=== PATIENT | female | born 1960 | race African-American/Black ===

== ENCOUNTER 2017-12-17 22:44 | Inpatient (IN) ==
[2017-12-17 23:34] LABS: Baso % (Auto) 0.4 % (0.0-2.0); Eos % (Auto) 0.9 % (0.0-4.0); Hematocrit 33.9 % (35.0-46.0); Hemoglobin 11.1 gm/dL (11.6-15.3); Lymph # (Auto) 1.7 th/mm3 (1.0-4.8); Lymph % (Auto) 34.8 % (9.0-44.0); Mean Corpuscular HGB Conc 32.9 % (32.0-36.0); Mean Corpuscular Hemoglobin 31.1 pg (27.0-34.0); Mean Corpuscular Volume 94.7 fL (80.0-100.0); Mean Platelet Volume 8.2 fL (7.0-11.0); Mono # (Auto) 0.4 th/mm3 (0.0-0.9); Mono % (Auto) 8.3 % (0.0-8.0); Neut # (Auto) 2.7 th/mm3 (1.8-7.7); Neut % (Auto) 55.6 % (16.0-70.0); Platelet Count 200 th/mm3 (150-450); Red Blood Count 3.58 mil/mm3 (4.00-5.30); Red Cell Distribution Width 14.2 % (11.6-17.2); White Blood Count 4.8 th/mm3 (4.0-11.0)
[2017-12-17 23:52] LABS: Alanine Aminotransferase 44 U/L (10-53); Albumin 3.6 g/dL (3.4-5.0); Alkaline Phosphatase 69 U/L (45-117); Anion Gap 11 meq/L (5-15); Aspartate Aminotransferase 66 U/L (15-37); Blood Urea Nitrogen 10 mg/dL (7-18); Calcium 8.8 mg/dL (8.5-10.1); Carbon Dioxide 25.5 meq/L (21.0-32.0); Chloride 110 meq/L (98-107); Creatine Kinase 411 U/L (26-192); Glomerular Filtration Rate 88 mL/min (>89); Glucose,Random 96 mg/dL (74-106); Sodium 146 meq/L (136-145); Total Protein 7.6 g/dL (6.4-8.2)
[2017-12-17 23:53] LABS: Potassium 2.5 meq/L (3.5-5.1)
[2017-12-18 00:15] LABS: CKMB Percent 1.9 % (0.0-4.0); Creatine Kinase MB 7.9 ng/mL (0.5-3.6)
[2017-12-18 00:58] LABS: Sodium 145 meq/L (136-145)
[2017-12-18 00:59] LABS: Anion Gap 10 meq/L (5-15); Blood Urea Nitrogen 9 mg/dL (7-18); Calcium 8.7 mg/dL (8.5-10.1); Carbon Dioxide 25.8 meq/L (21.0-32.0); Chloride 109 meq/L (98-107); Glomerular Filtration Rate Greater Than 89 mL/min (>89); Glucose,Random 85 mg/dL (74-106)
[2017-12-18 01:03] LABS: Potassium 2.7 meq/L (3.5-5.1)
--- NOTE | 2017-12-18 01:14 | ED ---
HPI General Chief Complaint: Psychiatric Symptoms Stated Complaint: Psych Eval/VCSO Time Seen by Provider: 12/17/17 23:02 Source: EMS Mode of arrival: EMS Limitations: altered mental status History of Present Illness HPI Narrative: The patient was brought in by EMS with police escort as a main act chemically sedated with 10 mg of Haldol and 2 of Ativan at [facility] for acute psychosis. As per Main act the patient was walking in the middle of the road and dealt on a fire approach her she started being aggressive and not responding to questions appropriately. She was unable to identify herself and was subsequently taken to the [facility] facility where she was chemically sedated and sent to the hospital for further evaluation and psychiatric consult. MD complaint: altered mental status Related Data Home Medications Medication Instructions Recorded Confirmed Unable to Obtain Home Meds 12/17/17 12/17/17 Allergies Allergy/AdvReac Type Severity Reaction Status Date / Time No Allergy Information Allergy Verified 12/17/17 23:14 Available Review of Systems ROS Unobtainable ROS Unobtainable: unobtainable due to mental status FOR[facility]LY [facility], [facility] Medical History Medical History Medical history unknown (Acute) Surgical history unknown (Acute) Social History Social History Substance History: Unable to Obtain Smoking Status: Cognitive impairment How Often Do You Have a Drink Containing Alcohol: Unable to Obtain Recent Out of Country Travel within the Last 8 Weeks: No Immunization History Tetanus Immunization: Unable to Assess Hx Influenza Vaccine This Season: Unable to Assess Exam Narrative Exam Narrative: GENERAL: Chemically sedated not responding to questions grimaces to painful stimuli SKIN: Focused skin assessment warm/dry. Facial excoriations old healing and vitiligo. HEAD: Atraumatic. Normocephalic. EYES: Pupils equal and round. No scleral icterus. No injection or drainage. ENT: No nasal bleeding or discharge. Mucous membranes pink and moist. NECK: Trachea midline. No JVD. CARDIOVASCULAR: Regular rate and rhythm. No murmur appreciated. RESPIRATORY: No accessory muscle use. Clear to auscultation. Breath sounds equal bilaterally. GASTROINTESTINAL: Abdomen soft, non-tender, nondistended. Hepatic and splenic margins not palpable. MUSCULOSKELETAL: No obvious deformities. No clubbing. No cyanosis. No edema. NEUROLOGICAL: Awake and alert. No obvious cranial nerve deficits. Motor grossly within normal limits. Normal speech. PSYCHIATRIC: Appropriate mood and affect; insight and judgment normal. Course Hospital Course: Patient arrived chemically sedated in no distress not agitated. She was evaluated for medical clearance. Patient with a hypokalemia of 2.5 confirmed by repeat not 2.7 initiated replacement in the emergency department her magnesium was within normal limits. Renal function intact. Was admitted for further evaluation and psychiatric consultation. Reevaluation(s) Reevaluation #1: Patient Time: 01:00 Initial Documented Vital Signs Temperature 97.9 F 12/17/17 22:58 Pulse Rate 82 12/17/17 22:58 Respiratory Rate 22 12/17/17 22:58 Blood Pressure 118/68 12/17/17 22:58 Pulse Oximetry 97 12/17/17 22:58 Last Documented Vital Signs Temperature 98.6 F 12/18/17 16:00 Pulse Rate 90 12/18/17 16:00 Respiratory Rate 16 12/18/17 16:00 Blood Pressure 129/81 12/18/17 16:00 Pulse Oximetry 98 12/18/17 16:00 Critical Care Time Critical Care Time: No Medical Decision Making MDM Narrative Medical Screen Exam Complete: Yes Emergency Medical Condition: Yes Lab Data Lab results reviewed: Yes I reviewed the patient's lab results. Result diagrams: 12/17/17 23:22 12/18/17 16:01 Lab Results 12/17/17 12/17/17 12/17/17 Range/Units 23:22 23:22 23:22 WBC 4.8 (4.0-11.0) th/mm3 RBC 3.58 L (4.00-5.30) mil/mm3 Hgb 11.1 L (11.6-15.3) gm/dL Hct 33.9 L (35.0-46.0) % MCV 94.7 (80.0-100.0) fL MCH 31.1 (27.0-34.0) pg MCHC 32.9 (32.0-36.0) % RDW 14.2 (11.6-17.2) % Plt Count 200 (150-450) th/mm3 MPV 8.2 (7.0-11.0) fL Neut % (Auto) 55.6 (16.0-70.0) % Lymph % (Auto) 34.8 (9.0-44.0) % Stone % (Auto) 8.3 H (0.0-8.0) % Eos % (Auto) 0.9 (0.0-4.0) % Baso % (Auto) 0.4 (0.0-2.0) % Neut # (Auto) 2.7 (1.8-7.7) th/mm3 Lymph # (Auto) 1.7 (1.0-4.8) th/mm3 Stone # (Auto) 0.4 (0.0-0.9) th/mm3 Eos # (Auto) 0.0 (0.0-0.4) th/mm3 Baso # (Auto) 0.0 (0.0-0.2) th/mm3 WBC Differential . Differential Comment Auto diff final Sodium 146 H (136-145) meq/L Potassium 2.5 L* (3.5-5.1) meq/L Chloride 110 H (98-107) meq/L Carbon Dioxide 25.5 (21.0-32.0) meq/L Anion Gap 11 (5-15) meq/L BUN 10 (7-18) mg/dL Creatinine 0.59 (0.50-1.00) mg/dL Estimated GFR 88 L (>89) mL/min Random Glucose 96 (74-106) mg/dL Calcium 8.8 (8.5-10.1) mg/dL Phosphorus (2.5-4.9) mg/dL Magnesium (1.5-2.5) mg/dL Total Bilirubin 0.6 (0.2-1.0) mg/dL AST 66 H (15-37) U/L ALT 44 (10-53) U/L Alkaline Phosphatase 69 (45-117) U/L Total Creatine Kinase 411 H (26-192) U/L CK-MB (CK-2) 7.9 H (0.5-3.6) ng/mL CK-MB (CK-2) % 1.9 (0.0-4.0) % Troponin I (0.02-0.05) ng/mL Total Protein 7.6 (6.4-8.2) g/dL Albumin 3.6 (3.4-5.0) g/dL Urine Color (Yellw/Straw) Urine Clarity (Clear) Urine pH (5.0-8.5) Ur Specific [place] (1.002-1.035) Urine Protein (Neg-Trace) mg/dL Urine Glucose (UA) (Negative) mg/dL Urine Ketones (Negative) mg/dL Urine Occult Blood (Negative) Urine Nitrate (Negative) Urine Bilirubin (Negative) Urine Urobilinogen (Less than 2) mg/dL Ur Leukocyte Esterase (Negative) Urine RBC (0-3) /hpf Urine WBC (0-5) /hpf Ur Squamous Epith Cells (0-5) /hpf Calcium Oxalate Crystal (None) /hpf Hyaline Casts (0-3) /lpf Urine Mucus (Occasional) /lpf Micro UA Comment Ur Microscopic Review Urine Culture Comments Salicylates 2.4 L (2.8-20.0) mg/dL Urine Opiates Screen (Neg) Acetaminophen Less than 2.0 L (10.0-30.0) mcg/mL Ur Barbiturates Screen (Neg) Ur Amphetamines Screen (Neg) U Benzodiazepines Scrn (Neg) Urine Cocaine Screen (Neg) U Cannabinoids Screen (Neg) Serum Alcohol Less than 3 (0-5) mg/dL 12/18/17 12/18/17 12/18/17 Range/Units 00:08 00:08 01:23 WBC (4.0-11.0) th/mm3 RBC (4.00-5.30) mil/mm3 Hgb (11.6-15.3) gm/dL Hct (35.0-46.0) % MCV (80.0-100.0) fL MCH (27.0-34.0) pg MCHC (32.0-36.0) % RDW (11.6-17.2) % Plt Count (150-450) th/mm3 MPV (7.0-11.0) fL Neut % (Auto) (16.0-70.0) % Lymph % (Auto) (9.0-44.0) % Stone % (Auto) (0.0-8.0) % Eos % (Auto) (0.0-4.0) % Baso % (Auto) (0.0-2.0) % Neut # (Auto) (1.8-7.7) th/mm3 Lymph # (Auto) (1.0-4.8) th/mm3 Stone # (Auto) (0.0-0.9) th/mm3 Eos # (Auto) (0.0-0.4) th/mm3 Baso # (Auto) (0.0-0.2) th/mm3 WBC Differential Differential Comment Sodium 145 (136-145) meq/L Potassium 2.7 L* (3.5-5.1) meq/L Chloride 109 H (98-107) meq/L Carbon Dioxide 25.8 (21.0-32.0) meq/L Anion Gap 10 (5-15) meq/L BUN 9 (7-18) mg/dL Creatinine 0.57 (0.50-1.00) mg/dL Estimated GFR Greater than 89 (>89) mL/min Random Glucose 85 (74-106) mg/dL Calcium 8.7 (8.5-10.1) mg/dL Phosphorus (2.5-4.9) mg/dL Magnesium 1.7 (1.5-2.5) mg/dL Total Bilirubin (0.2-1.0) mg/dL AST (15-37) U/L ALT (10-53) U/L Alkaline Phosphatase (45-117) U/L Total Creatine Kinase (26-192) U/L CK-MB (CK-2) (0.5-3.6) ng/mL CK-MB (CK-2) % (0.0-4.0) % Troponin I (0.02-0.05) ng/mL Total Protein (6.4-8.2) g/dL Albumin (3.4-5.0) g/dL Urine Color (Yellw/Straw) Urine Clarity (Clear) Urine pH (5.0-8.5) Ur Specific [place] (1.002-1.035) Urine Protein (Neg-Trace) mg/dL Urine Glucose (UA) (Negative) mg/dL Urine Ketones (Negative) mg/dL Urine Occult Blood (Negative) Urine Nitrate (Negative) Urine Bilirubin (Negative) Urine Urobilinogen (Less than 2) mg/dL Ur Leukocyte Esterase (Negative) Urine RBC (0-3) /hpf Urine WBC (0-5) /hpf Ur Squamous Epith Cells (0-5) /hpf Calcium Oxalate Crystal (None) /hpf Hyaline Casts (0-3) /lpf Urine Mucus (Occasional) /lpf Micro UA Comment Ur Microscopic Review Urine Culture Comments Salicylates (2.8-20.0) mg/dL Urine Opiates Screen Neg (Neg) Acetaminophen (10.0-30.0) mcg/mL Ur Barbiturates Screen Neg (Neg) Ur Amphetamines Screen Neg (Neg) U Benzodiazepines Scrn Neg (Neg) Urine Cocaine Screen Neg (Neg) U Cannabinoids Screen Neg (Neg) Serum Alcohol (0-5) mg/dL 12/18/17 12/18/17 12/18/17 Range/Units 01:23 09:10 16:01 WBC (4.0-11.0) th/mm3 RBC (4.00-5.30) mil/mm3 Hgb (11.6-15.3) gm/dL Hct (35.0-46.0) % MCV (80.0-100.0) fL MCH (27.0-34.0) pg MCHC (32.0-36.0) % RDW (11.6-17.2) % Plt Count (150-450) th/mm3 MPV (7.0-11.0) fL Neut % (Auto) (16.0-70.0) % Lymph % (Auto) (9.0-44.0) % Stone % (Auto) (0.0-8.0) % Eos % (Auto) (0.0-4.0) % Baso % (Auto) (0.0-2.0) % Neut # (Auto) (1.8-7.7) th/mm3 Lymph # (Auto) (1.0-4.8) th/mm3 Stone # (Auto) (0.0-0.9) th/mm3 Eos # (Auto) (0.0-0.4) th/mm3 Baso # (Auto) (0.0-0.2) th/mm3 WBC Differential Differential Comment Sodium 143 (136-145) meq/L Potassium 3.2 L (3.5-5.1) meq/L Chloride 111 H (98-107) meq/L Carbon Dioxide 25.2 (21.0-32.0) meq/L Anion Gap 7 (5-15) meq/L BUN 7 (7-18) mg/dL Creatinine 0.45 L (0.50-1.00) mg/dL Estimated GFR Greater than 89 (>89) mL/min Random Glucose 100 (74-106) mg/dL Calcium 8.8 (8.5-10.1) mg/dL Phosphorus 2.3 L (2.5-4.9) mg/dL Magnesium 1.7 (1.5-2.5) mg/dL Total Bilirubin (0.2-1.0) mg/dL AST (15-37) U/L ALT (10-53) U/L Alkaline Phosphatase (45-117) U/L Total Creatine Kinase (26-192) U/L CK-MB (CK-2) (0.5-3.6) ng/mL CK-MB (CK-2) % (0.0-4.0) % Troponin I Less than 0.02 L Less than 0.02 L (0.02-0.05) ng/mL Total Protein (6.4-8.2) g/dL Albumin (3.4-5.0) g/dL Urine Color Esther (Yellw/Straw) Urine Clarity Hazy H (Clear) Urine pH 5.0 (5.0-8.5) Ur Specific [place] 1.027 (1.002-1.035) Urine Protein 30 H (Neg-Trace) mg/dL Urine Glucose (UA) Negative (Negative) mg/dL Urine Ketones Negative (Negative) mg/dL Urine Occult Blood Negative (Negative) Urine Nitrate Negative (Negative) Urine Bilirubin Negative (Negative) Urine Urobilinogen 4 or greater (Less than 2) mg/dL Ur Leukocyte Esterase Negative (Negative) Urine RBC 2 (0-3) /hpf Urine WBC 4 (0-5) /hpf Ur Squamous Epith Cells <1 (0-5) /hpf Calcium Oxalate Crystal Rare H (None) /hpf Hyaline Casts 1 (0-3) /lpf Urine Mucus Many H (Occasional) /lpf Micro UA Comment Cath-culture not ind Ur Microscopic Review Not Reportable Urine Culture Comments Cath-cult not ind Salicylates (2.8-20.0) mg/dL Urine Opiates Screen (Neg) Acetaminophen (10.0-30.0) mcg/mL Ur Barbiturates Screen (Neg) Ur Amphetamines Screen (Neg) U Benzodiazepines Scrn (Neg) Urine Cocaine Screen (Neg) U Cannabinoids Screen (Neg) Serum Alcohol (0-5) mg/dL Discharge Plan Discharge Disposition Patient Disposition: 30 Still Patient Discharge Condition Condition: Good Discharge Details Diagnosis: Unspecified psychosis Physicians Team ED Provider: Ced Rose Primary Care Provider: UNKNOWN, Attending Provider: Julia Smith Other Providers: Otoniel Hernandez Discharge Interventions Interventions: ED Discharge Assessment Last Done: 12/18/17 07:03 Vital Signs Last Done: 12/18/17 03:23 Status ED Status: Left Department Discharge Information Discharge Date/Time: 12/18/17 07:04
[2017-12-18] MEDS: Potassium Chlor 10 mEq Premix 10 MEQ/100 ML PIGGYBACK IV.SIG SCH ×3 (01:38→03:57)
[2017-12-18 01:55] LABS: Bilirubin,Urine Negative (Negative); Calcium Oxalate Crystals,Urine Rare /hpf; Clarity,Urine Hazy (Clear); Color,Urine Amber (Yellw/Straw); Glucose,Urine (UA) Negative (Negative); Hyaline Casts,Urine 1 /lpf (0-3); Leukocyte Esterase,Urine Negative (Negative); Mucus,Urine Many /lpf (Occasional); Nitrite,Urine Negative (Negative); Specific Gravity,Urine 1.027 (1.002-1.035); Squamous Epithelial Cell,Urine <1 /hpf (0-5); Urobilinogen,Urine 4 or Greater mg/dL (Less than 2)
[2017-12-18 01:59] LABS: Amphetamine Screen,Urine Neg (Neg); Barbiturate Screen,Urine Neg (Neg); Cannabinoid Screen,Urine Neg (Neg); Cocaine Screen,Urine Neg (Neg)
[2017-12-18 02:09] LABS: Opiate Screen,Urine Neg (Neg)
[2017-12-18] MEDS ORDERED: Sod Chloride 0.9% Inj 1,000 ML IV.SIG ONE (02:24)
[2017-12-18] MEDS ORDERED: Bisacodyl 10 MG Supp RECTAL PRN (04:00)
[2017-12-18] MEDS ORDERED: Sod Chloride 0.9% Inj 1,000 ML IV.CONT SCH (04:00)
--- NOTE | 2017-12-18 04:10 | P.HPIM ---
History of Present Illness Primary Care Physician: UNKNOWN History of Present Illness: Middle-aged female brought in by EMS by police, having been chemically sedated with 10 mg of Haldol 2 mg of Ativan at [facility]. Apparently she was walking in the middle of the road acting aggressively towards police. Patient wakes up to loud verbal stimulation, however is very somnolent and does not answer any questions. However history is obtained from chart. Past surgical, social, family history unable to be obtained. Inpatient Certification: I certify that the inpatient services were ordered in accordance with Medicare regulations governing the order. This includes certification that hospital inpatient services are reasonable and necessary and in the case of services not specified as inpatient-only under 42 CFR 419.22(n), that they are appropriately provided as inpatient services in accordance to with the 2-midnight benchmark under 43 CFR 412.3(e) Estimated Total Length of Stay (Days): 2 Plans for Post Hospital Care: Home Review of Systems Unable to be performed due to patient being sedated. PMF - History History Provided By: Travel Services Professional / EMT - Medical History Medical History: Medical History (Last Reviewed 12/18/17 @ 03:44 by Ced Rose DO) Medical history unknown Surgical history unknown - Tobacco History Smoking Status: Unknown if ever smoked - Alcohol History How Often Do You Have a Drink Containing Alcohol: Unable to Obtain - Substance Use History Substance History: Unable to Obtain - Travel History Recent Travel Out of the Country Within the Last 8 Weeks: No - Immunization History Tetanus Immunization: Unable to Assess Hx Influenza Vaccine This Season: Unable to Assess Medications and Allergies Active Medications: Active Medications Al Hydroxide/Mg Hydroxide (Milk Of Magnesia Liq) 30 ml PO Q12H PRN PRN Reason: Mild Constipation Bisacodyl (Dulcolax Supp) 10 mg RECTAL DAILY PRN PRN Reason: SEVERE CONSITIPATION Potassium Chloride (Kcl 10 Meq Premix Inj) 10 meq in 100 mls @ 100 mls/hr IV.SIG Q1H DAVID Stop: 12/18/17 04:14 Last Admin: 12/18/17 03:57 Dose: 100 mls/hr Sodium Chloride (Ns Inj) 1,000 mls @ 100 mls/hr IV.CONT .Q10H DAVID Lactulose (Lactulose Liq) 30 ml PO DAILY PRN PRN Reason: SEVERE CONSITIPATION Sennosides (Senokot) 17.2 mg PO Q12H PRN PRN Reason: Moderate Constipation Allergies Allergy/AdvReac Type Severity Reaction Status Date / Time No Allergy Information Allergy Verified 12/17/17 23:14 Available Home Medications Medication Instructions Recorded Confirmed Type Unable to Obtain Home Meds 12/17/17 12/17/17 History Exam Vital signs: Vital Signs 12/17/17 22:58 12/17/17 23:29 12/18/17 00:24 Temperature 97.9 F Pulse Rate 82 81 88 Respiratory Rate 22 20 20 Blood Pressure 118/68 118/68 140/88 Pulse Oximetry 97 98 97 12/18/17 02:52 12/18/17 03:23 Temperature Pulse Rate 78 81 Respiratory Rate 16 19 Blood Pressure 127/67 194/92 H Pulse Oximetry 98 Intake & Output 12/17/17 12/17/17 12/18/17 06:59 18:59 06:59 Intake Total 200 / 200 Balance 200 / 200 Weight 63.503 kg Intake: IV 200 / 200 KCl 10 mEq Premix Inj 10 meq In 200 / 200 100 ml @ 100 mls/hr IV.SIG Q1H [facility] Rx#:[id number] Narrative: GENERAL: Patient sleeping, arousable to tactile stimulation. Extremely somnolent, does not answer questions. SKIN: Warm and dry. Patient does have a blanching rash with subcentimeter plaques on her face. No broken skin. HEAD: Atraumatic. Normocephalic. EYES: Pupils equal and round. No scleral icterus. No injection or drainage. ENT: No nasal bleeding or discharge. Mucous membranes pink and moist. NECK: Trachea midline. No JVD. CARDIOVASCULAR: Regular rate and rhythm. RESPIRATORY: No accessory muscle use. Clear to auscultation. Breath sounds equal bilaterally. GASTROINTESTINAL: Abdomen soft, non-tender, nondistended. Hepatic and splenic margins not palpable. MUSCULOSKELETAL: Extremities without clubbing, cyanosis, or edema. No obvious deformities. NEUROLOGICAL: Somnolent. No obvious cranial nerve deficits. Patient noted to move her extremities upon tactile stimulation. PSYCHIATRIC: Appropriate mood and affect; insight and judgment normal. Results - Labs CBC & Chem 7: 12/17/17 23:22 12/18/17 00:08 Labs: Short CBC 12/17/17 Range/Units 23:22 WBC 4.8 (4.0-11.0) th/mm3 Hgb 11.1 L (11.6-15.3) gm/dL Hct 33.9 L (35.0-46.0) % Plt Count 200 (150-450) th/mm3 BMP 12/17/17 12/18/17 23:22 00:08 Sodium 146 H 145 Potassium 2.5 L* 2.7 L* Chloride 110 H 109 H Carbon Dioxide 25.5 25.8 BUN 10 9 Creatinine 0.59 0.57 Calcium 8.8 8.7 Cardiac Enzymes 12/17/17 Range/Units 23:22 Total Creatine Kinase 411 H (26-192) U/L CK-MB (CK-2) 7.9 H (0.5-3.6) ng/mL Liver Function 12/17/17 Range/Units 23:22 Total Bilirubin 0.6 (0.2-1.0) mg/dL AST 66 H (15-37) U/L ALT 44 (10-53) U/L Alkaline Phosphatase 69 (45-117) U/L Albumin 3.6 (3.4-5.0) g/dL Urine 12/18/17 Range/Units 01:23 Urine Color Esther (Yellw/Straw) Urine Clarity Hazy H (Clear) Urine pH 5.0 (5.0-8.5) Ur Specific [place] 1.027 (1.002-1.035) Urine Protein 30 H (Neg-Trace) mg/dL Urine Glucose (UA) Negative (Negative) mg/dL Caprini VTE Risk Assessment Caprini VTE Risk Assessment: Moderate/High Risk (score >= 2) Caprini Risk Assessment Model: Point Value = 1 Point Value = 2 Point Value = 3 Point Value = 5 Age 41-60 Minor surgery BMI > 25 kg/m2 Swollen legs Varicose veins or History of unexplained or recurrent spontaneous Oral contraceptives or hormone replacement Sepsis (< 1 month) Serious lung disease, including pneumonia (< 1 month) Abnormal pulmonary function Acute myocardial infarction Congestive heart failure (< 1 month) History of inflammatory bowel disease Medical patient at bed rest Age 61-74 Arthroscopic surgery Major open surgery (> 45 min) Laparoscopic surgery (> 45 min) Malignancy Confined to bed (> 72 hours) Immobilizing plaster cast Central venous access Age >= 75 History of VTE Family history of VTE Factor V Leiden Prothrombin [id number] Lupus anticoagulant Anticardiolipin antibodies Elevated serum homocysteine Heparin-induced thrombocytopenia Other congenital or acquired thrombophilia Stroke (< 1 month) Elective arthroplasty Hip, pelvis, or leg fracture Acute spinal cord injury (< 1 month) Prophylaxis Regimen: Total Risk Factor Score Risk Level Prophylaxis Regimen 0-1 Low Early ambulation 2 Moderate Order ONE of the following: *Sequential Compression Device (SCD) *Heparin 5000 units SQ BID 3-4 Higher Order ONE of the following medications: *Heparin 5000 units SQ TID *Enoxaparin/Lovenox 40 mg SQ daily (WT < 150 kg, CrCl > 30 mL/min) *Enoxaparin/Lovenox 30 mg SQ daily (WT < 150 kg, CrCl > 10-29 mL/min) *Enoxaparin/Lovenox 30 mg SQ BID (WT < 150 kg, CrCl > 30 mL/min) AND/OR *Sequential Compression Device (SCD) 5 or more Highest Order ONE of the following medications: *Heparin 5000 units SQ TID (Preferred with Epidurals) *Enoxaparin/Lovenox 40 mg SQ daily (WT < 150 kg, CrCl > 30 mL/min) *Enoxaparin/Lovenox 30 mg SQ daily (WT < 150 kg, CrCl > 10-29 mL/min) *Enoxaparin/Lovenox 30 mg SQ BID (WT < 150 kg, CrCl > 30 mL/min) AND *Sequential Compression Device (SCD) Assessment and Plan - Plan //Acute psychosis Status post sedation with Haldol and Ativan Restraints as necessary Consult psychiatry. Appreciate assistance //Hypokalemia. Potassium 2.7. Potassium administered this morning in the ER. Magnesium within normal limits. Will follow up.. Discussed Condition With: ED physician, nurse.
--- NOTE | 2017-12-18 14:33 | P.CONPSY ---
Provisional Diagnosis Admission Date: December 18, 2017 02:22 Arrington I.: Unspecified psychosis History of Present Illness Service: ER Primary Care Provider: UNKNOWN History of Present Illness: The patient is a 57-year-old -[place] woman, domiciled in [facility], , unemployed, who claims that is from the [facility], denies previous psychiatric history, denies previous suicide attempts, denies psychiatric hospitalizations, she denies use of illegal drugs and alcohol, who was brought in by EMS by police, having been chemically sedated with 10 mg of Haldol 2 mg of Ativan at [facility] due to aggressive behavior. Apparently she was walking in the middle of the road acting aggressively towards police. Patient wakes up to loud verbal stimulation, however is very somnolent and does not answer any questions. She was found by me restrained in 4 points in the ER. She was quite sleepy, difficult to arouse, would talk a couple of words and will fall sleep again, unable to participate and provide much information for the psychiatric assessment at the moment. She does state that she is in [place]. She says that in November 2017. She knows that the executive vice president business development is Kane Murguia. Denies pain, denies distress, she denies suicidal and homicidal ideation, denies visual and auditory hallucinations, but is unable to answer further questions. P [facility] - History History Provided By: Garde Manager / EMT - Medical History Medical History: Medical History (Last Reviewed 12/18/17 @ 03:44 by Ced Rose DO) Medical history unknown Surgical history unknown - Tobacco History Smoking Status: Cognitive impairment - Alcohol History How Often Do You Have a Drink Containing Alcohol: Unable to Obtain - Substance Use History Substance History: Unable to Obtain - Travel History Recent Travel Out of the Country Within the Last 8 Weeks: No - Immunization History Tetanus Immunization: Unable to Assess Hx Influenza Vaccine This Season: Unable to Assess Medications and Allergies Active Medications: Active Medications Al Hydroxide/Mg Hydroxide (Milk Of Magnesia Liq) 30 ml PO Q12H PRN PRN Reason: Mild Constipation Bisacodyl (Dulcolax Supp) 10 mg RECTAL DAILY PRN PRN Reason: SEVERE CONSITIPATION Potassium Chloride 30 meq/ (Sodium Chloride) 1,015 mls @ 100 mls/hr IV.CONT .Q10H9M DAVID Lactulose (Lactulose Liq) 30 ml PO DAILY PRN PRN Reason: SEVERE CONSITIPATION Sennosides (Senokot) 17.2 mg PO Q12H PRN PRN Reason: Moderate Constipation Allergies Allergy/AdvReac Type Severity Reaction Status Date / Time No Allergy Information Allergy Verified 12/17/17 23:14 Available Home Medications Medication Instructions Recorded Confirmed Type Unable to Obtain Home Meds 12/17/17 12/17/17 History Exam Vital signs: Vital Signs 12/17/17 22:58 12/17/17 23:29 12/18/17 00:24 Temperature 97.9 F Pulse Rate 82 81 88 Respiratory Rate 22 20 20 Blood Pressure 118/68 118/68 140/88 Pulse Oximetry 97 98 97 12/18/17 02:52 12/18/17 03:23 12/18/17 05:08 Temperature 98 F Pulse Rate 78 81 78 Respiratory Rate 16 19 16 Blood Pressure 127/67 194/92 H 167/70 H Pulse Oximetry 98 12/18/17 07:05 12/18/17 10:12 12/18/17 12:00 Temperature 97.7 F 98.7 F Pulse Rate 73 73 Respiratory Rate 20 18 18 Blood Pressure 135/96 H 143/89 H Pulse Oximetry 98 97 Intake & Output 12/17/17 12/18/17 12/18/17 18:59 06:59 18:59 Intake Total 2300 / 2300 Balance 2300 / 2300 Weight 63.503 kg Intake: IV 1300 / 1300 KCl 10 mEq Premix Inj 10 meq In 300 / 300 100 ml @ 100 mls/hr IV.SIG Q1H [facility] Rx#:[id number] NS Inj 1,000 ML @ Per Protocol 1000 / 1000 IV.SIG BOLUS ONE Rx#:[id number] Other 1000 / 1000 Other: Other Intake Source Saline Solution Narrative: Very sedated, unable to contribute - Constitutional no acute distress Mental Status Examination Appearance: Dirty, Disheveled Consciousness: Asleep Orientation: Person, Place, Date/Time Speech: Incoherent Language: Adequate Fund of Knowledge: Inadequate Memory: Impaired Mood: Good Affect: Appropriate Thought Process & Associations: Goal directed Hallucination Type: None Delusion Type: None Suicidal Ideation: No Suicidal Plan: No Suicidal Intention: No Homicidal Ideation: No Homicidal Plan: No Homicidal Intention: No Insight: Poor Judgment: Poor Assessment and Plan - Assessment (1) Unspecified psychosis Code(s): F29 - Unspecified psychosis not due to a substance or known physiological condition Status: Acute - Plan Plan: Estimated LOS: [] days On my psychiatric evaluation today the patient continues to be sedated, minimally engageable in a conversation, not providing much information for a full psychiatric assessment, but able to demonstrate that she is oriented x3, denies suicidal and homicidal ideation, denies visual and auditory hallucinations. As per chart review, the patient has been combative, agitated, had to be chemically restrained with Haldol 10 mg. Her toxicology is negative at the moment. We did not have enough information about previous psychiatric history. I will lift the Main act in place until patient can be fully assessed. Will order Haldol 2 mg IM every 8 hours as needed agitation and aggressive behavior. Wa protocol. Justification for Continued Inpatient Stay: No admission indicated at the moment.
[2017-12-18] MEDS: POTASSIUM CHLORIDE IV.CONT SCH ×2 (15:23→16:58)
[2017-12-18] MEDS: SODIUM CHLORIDE 0.45% IV.CONT SCH ×2 (15:23→16:58)
--- NOTE | 2017-12-18 16:07 | P.PNADD ---
Addendum to Inpatient Note Reason for Addendum: Additional Documentation Additional information: The pt was resting in bed. She was sleeping comfortably. She didn't have any complaints. Nursing reports that she refused her labs. Psychiatry evaluated the pt and are following. Follow BMP and replete potassium. ADAT.
[2017-12-18 16:41] LABS: Anion Gap 7 meq/L (5-15); Blood Urea Nitrogen 7 mg/dL (7-18); Calcium 8.8 mg/dL (8.5-10.1); Carbon Dioxide 25.2 meq/L (21.0-32.0); Chloride 111 meq/L (98-107); Glomerular Filtration Rate Greater Than 89 mL/min (>89); Glucose,Random 100 mg/dL (74-106); Magnesium 1.7 mg/dL (1.5-2.5); Phosphorus 2.3 mg/dL (2.5-4.9); Potassium 3.2 meq/L (3.5-5.1); Sodium 143 meq/L (136-145)
[2017-12-18 17:00] VITALS: RESP 16
[2017-12-18] MEDS ORDERED: Sodium Phosphate Inj 15 MMOL in Sodium Chlor 0.9% Inj 100 ML IV.SIG ONE (21:00)
[2017-12-19] MEDS ORDERED: Ibuprofen 400 MG Tablet PO ONE ×2 (00:44→12:17)
[2017-12-19] MEDS: POTASSIUM CHLORIDE IV.CONT SCH ×2 (02:56→11:37)
[2017-12-19] MEDS: SODIUM CHLORIDE 0.45% IV.CONT SCH ×2 (02:56→11:37)
--- NOTE | 2017-12-19 08:07 | P.PN ---
Subjective Interval history: Follow-up on patient with acute psychosis. Patient seen and examined. Patient is very much awake and alert. She is hyperverbal. She appears manic, talking nonstop, jumping from one subject to another. She has been constantly cleaning her room all morning. She is pacing in the unit. Discussed with Dr. Hernandez who is accepting patient for psychiatric admission. Recommended 10 mg of Zyprexa now which patient has refused. Also attempted to order Head CT but patient refused. Physical Exam Vital signs: Vital Signs 12/18/17 10:12 12/18/17 12:00 12/18/17 16:00 Temperature 98.7 F 98.6 F Pulse Rate 73 90 Respiratory Rate 18 18 16 Blood Pressure 143/89 H 129/81 Pulse Oximetry 97 98 12/18/17 20:00 12/19/17 00:00 12/19/17 03:31 Temperature 98.5 F 98.3 F 98.7 F Pulse Rate 86 83 82 Respiratory Rate 16 16 16 Blood Pressure 137/90 119/76 130/88 Pulse Oximetry 100 97 98 Intake & Output 12/18/17 12/19/17 12/19/17 18:59 06:59 18:59 Intake Total 2265 / 2265 720 / 720 Balance 2265 / 2265 720 / 720 Intake: IV 2014 KCl Inj 30 MEQ In 1/2 Normal 1015 / 1015 Saline Inj 1,000 ML @ 100 mls/ hr IV.CONT .Q10H9M DAVID Rx#: [id number] NS Inj 1,000 ML @ 100 mls/hr IV 1000 / 1000 .CONT .Q10H DAVID Rx#:[id number] Oral 250 / 250 720 / 720 Other: # Voids 4 Date of Last Bowel Movement 12/18/17 # Bowel Movements 1 Narrative: GENERAL: WDWN middle aged [facility] patient, INAD. Awake and alert. Oriented. Hyperverbal. Manic, pacing around her room and in the unit, engaging anyone who walks by her in conversation SKIN: Warm and dry. +scattered plaques on face and neck. HEAD: Atraumatic. Normocephalic. EYES: Pupils equal and round. No scleral icterus. No injection or drainage. ENT: No nasal bleeding or discharge. Mucous membranes pink and moist. NECK: Trachea midline. CARDIOVASCULAR: Regular rate and rhythm. RESPIRATORY: No accessory muscle use. Clear to auscultation. Breath sounds equal bilaterally. GASTROINTESTINAL: Abdomen soft, non-tender, nondistended. +BS. MUSCULOSKELETAL: Extremities without clubbing, cyanosis, or edema. No obvious deformities. NEUROLOGICAL: Awake and alert. No obvious cranial nerve deficits. Motor grossly within normal limits. Able to move all extremities spontaneously. Pressured speech. PSYCHIATRIC: Manic, hyperverbal. Expansive affect. Insight and judgement poor. Results - Labs CBC & Chem 7: 12/17/17 23:22 12/18/17 16:01 Laboratory Results - last 24 hr 12/18/17 12/18/17 09:10 16:01 Sodium 143 Potassium 3.2 L Chloride 111 H Carbon Dioxide 25.2 Anion Gap 7 BUN 7 Creatinine 0.45 L Estimated GFR Greater than 89 Random Glucose 100 Calcium 8.8 Phosphorus 2.3 L Magnesium 1.7 Troponin I Less than 0.02 L Less than 0.02 L Assessment and Plan - Plan Acute psychosis Bipolar disorder UDS neg UA neg for UTI -Evaluated by psychiatry, accept for inpatient psychiatric admission -Ordered 10mg Zyprexa x [address] Hernandez, patient refused -Head CT ordered, patient refused Rhabdomyolysis, mild -repeat CPK level -encourage fluid intake Hypokalemia Potassium 2.7 -improved to 3.2 s/p repletion. Will give additional po. -repeat BMP in am DVT prophylaxis patient is ambulatory Discharge patient to inpatient psychiatry Condition on discharge: Stable Heart healthy Diet as tolerated Ad Nelly activity Rx written: Follow-up with primary care physician Code Status: FULL Discussed Condition With: patient, nursing staff, Dr. Smith, Dr. Hernandez Discharge Planning: Discharge to inpatient psychiatry
[2017-12-19] MEDS ORDERED: Magnesium Oxide 400 MG Tablet PO ONE (09:00)
[2017-12-19 12:12] VITALS: BP 134/96; PULSE 75; TEMP 98; O2SAT 100
--- NOTE | 2017-12-19 14:52 | P.PNPSY ---
Subjective Remarks: The patient is a 57 -Italian woman, domiciled in [place], single, unemployed, she reports that she is a and is at 100% service-connected, with a psychiatric history of bipolar disorder, PTSD, multiple psychiatric admissions, suicidal attempts, first time at [facility], she is on Haldol 5 mg twice daily, Tegretol, but she does not know the dose, outpatient care in the [place] , no significant medical history, she denies the use of illegal drugs and alcohol, who was brought in by EMS by police, having been chemically sedated with 10 mg of Haldol 2 mg of Ativan at [facility] due to aggressive behavior. Yesterday the patient was very sedated and poorly cooperative, and I could not get much information. The patient was seen today for psychiatric reevaluation. The patient was widely discussed with primary medical team. Today the patient is awake, cooperative, but extremely restless, very talkative, with clear pressured speech , very disorganized and tangential, with steven loosening of associations paranoia and grandiose delusions. She is very expansive, and stated that she is going to buy fly thickest to [place] to all the nurses and doctors in the ER. The patient reports that she is very happy, but she needs to go, she needs to smoke, she is speaking to me in Cymro and Belarusian at the same time. She denies suicidal and homicidal ideation, she denies visual and auditory hallucinations. At some point she becomes quite verbally hostile, but she is just dilated. As per nurse, the patient has being very difficult to redirect, walking in the ER, entering into others patient's room. The patient is fully oriented x3, she has no fluctuation of consciousness, she does not have a prominent attention deficit. The patient reports that she has a psychiatric history of bipolar disorder and PTSD, she says that she is in Haldol 5 mg twice daily, Tegretol, but she does not know the dose. Her toxicology is negative, as well as BAL. She has a psychiatric history of bipolar disorder, PTSD, she is on Haldol 5 mg twice daily, Tegretol, unknown dose, [facility], multiple [facility] No significant medical history She denies the use of illegal drugs and alcohol She denies family psychiatric history Patient reports that she was born and raised in [place], she lives in [place], single, poor family support, , service connected, supported by Social Security and [facility] benefits, he says that she is 100% service-connected, highest level of education is high school Mental Status Examination Appearance: Dirty, Disheveled Consciousness: Alert Orientation: Person, Place, Date/Time Motor Activity: Normal gait Speech: Pressured Language: Adequate Fund of Knowledge: Adequate Memory: Unremarkable Mood: Irritable, Manic Affect: Irritable Thought Process & Associations: Goal directed Thought Content: Appropriate Hallucination Type: None Delusion Type: Bizarre, Paranoid Suicidal Ideation: No Suicidal Plan: No Suicidal Intention: No Homicidal Ideation: No Homicidal Plan: No Homicidal Intention: No Insight: Poor Judgment: Poor Assessment and Plan - Assessment (1) Unspecified psychosis Code(s): F29 - Unspecified psychosis not due to a substance or known physiological condition Status: Acute - Plan Plan: On my psychiatric evaluation today I find a patient that is quite hyperactive, restless, talkative, with marked pressured speech, grandiose and paranoid delusions, expansive affect, disruptive in the ER, who does not seem to be very reliable given his level of disorganization and loosening of associations at the moment, but she is oriented x3, and clarified that she has psychiatric history of bipolar disorder and PTSD, [facility] and she is on Haldol 5 mg twice daily, and Tegretol unknown doses. Patient presents acutely manic, her toxicology is negative, she definitely needs psychiatric hospitalization for stabilization. I am going to start Haldol 2.5 mg twice daily. Collateral information from the [facility] is crucial to complete the psychiatric assessment. He can be transferred to psychiatry. Justification for Continued Inpatient Stay: Patient needs psychiatric admission for stabilization. (1) Unspecified psychosis Qualifiers: Qualified Code(s): F29 - Unspecified psychosis not due to a substance or known physiological condition
== END 2017-12-19 15:49 ==
LOC: NEPC 22:44 → NEDA 12-18 02:22 → EDBD 12-18 02:22 → NEPGCP 12-18 07:01
PROVIDERS: ADMIT Family Medicine; ATTEND Family Medicine

== ENCOUNTER 2017-12-19 16:00 | Inpatient (IN) ==
[2017-12-19] MEDS ORDERED: Melatonin 5 MG Tablet PO PRN (20:50)
[2017-12-19] MEDS ORDERED: Aluminum/Magnesium/Simethacone Susp 30 ML UDC PO PRN (20:50)
[2017-12-20] MEDS: Acetaminophen 325 MG Tablet PO PRN ×2 (02:40→13:54)
--- NOTE | 2017-12-20 07:36 | P.HPPSY ---
Provisional Diagnosis Admission Date: December 19, 2017 16:00 [place] I.: Bipolar disorder, PTSD Competence Certification of Person's Competence To Provide Express and Informed Consent I have personally examined Heather Simpson, a person being served at [facility] on, December 20, 2017 0731. Express and informed consent means consent voluntarily given in writing, by a competent person, after sufficient explanation and disclosure of the subject matter involved to enable the person to make a knowing and willful decision without any element of force, fraud, deceit, duress, or other form of constraint or coercion. This person is 18 years of age or older, is not now known to be incompetent to consent to treatment with a guardian advocate, and does not have a health care surrogate or proxy currently making medical treatment decisions. I have found this person to be one of the following: [] Competent to provide express and informed consent, as defined above, for voluntary admission to this facility and is competent to provide express and informed consent for treatment. He/she has the consistent capacity to make well reasoned, willful, and knowing decisions concerning his or her medical or mental health treatment. The person fully and consistently understands the purpose of the admission for examination/placement and is fully capable of personally exercising all rights assured under [place] Incompetent to provide express and informed consent to voluntary admission, and this is incompetent to provide express and informed consent to treatment. The person must be transferred to involuntary status and a petition for a guardian advocate filed with the Circuit Court. [x] Refusing to provide express and informed consent to voluntary admission but is competent to provide express and informed consent for treatment. The person must be discharged or transferred to involuntary status. Form shall be completed within 24 hours of a person's arrival at the receiving facility and filed in the clinical record of each person: 1. Admitted on a voluntary basis 2. Permitted to provide express and informed consent to his/her own treatment 3. Allowed to transfer from involuntary to voluntary status 4. Prior to permitting a person to consent to his or her own treatment after having been previously found incompetent to consent to treatment. History of Present Illness Capacity: Has capacity History of Present Illness: Late entry. Patient was seen 12/18/2017 and 12/19/2017. Initial encounter in the ER 12/18/2017: The patient is a 57-year-old - Yemeni woman, domiciled in [place], , unemployed, who claims that is from the [facility], denies previous psychiatric history, denies previous suicide attempts, denies psychiatric hospitalizations, she denies use of illegal drugs and alcohol, who was brought in by EMS by police, having been chemically sedated with 10 mg of Haldol 2 mg of Ativan at [facility] due to aggressive behavior. Apparently she was walking in the middle of the road acting aggressively towards police. Patient wakes up to loud verbal stimulation , however is very somnolent and does not answer any questions. She was found by me restrained in 4 points in the ER. She was quite sleepy, difficult to arouse, would talk a couple of words and will fall sleep again, unable to participate and provide much information for the psychiatric assessment at the moment. She does state that she is in [place]. She says that in November 2017. She knows that the president and cmo is Kane Murguia. Denies pain, denies distress, she denies suicidal and homicidal ideation, denies visual and auditory hallucinations, but is unable to answer further questions. Second encounter 12/19/2017: The patient is a 57 -Y[place]i woman, domiciled in [place], , unemployed, she reports that she is a and is at 100% service-connected, with a psychiatric history of bipolar disorder, PTSD, multiple psychiatric admissions, suicidal attempts, first time at [facility] , she is on Haldol 5 mg twice daily, Tegretol, but she does not know the dose, outpatient care in the [place], no significant medical history, she denies the use of illegal drugs and alcohol, who was brought in by EMS by police, having been chemically sedated with 10 mg of Haldol 2 mg of Ativan at [facility] due to aggressive behavior. Yesterday the patient was very sedated and poorly cooperative, and I could not get much information. The patient was seen today for psychiatric reevaluation. The patient was widely discussed with primary medical team. Today the patient is awake, cooperative, but extremely restless, very talkative, with clear pressured speech , very disorganized and tangential, with steven loosening of associations paranoia and grandiose delusions. She is very expansive, and stated that she is going to buy fly thickest to [place] to all the nurses and doctors in the ER. The patient reports that she is very happy, but she needs to go, she needs to smoke, she is speaking to me in Moroccan and Danish at the same time. She denies suicidal and homicidal ideation, she denies visual and auditory hallucinations. At some point she becomes quite verbally hostile, but she is just dilated. As per nurse, the patient has being very difficult to redirect, walking in the ER, entering into others patient's room. The patient is fully oriented x3, she has no fluctuation of consciousness, she does not have a prominent attention deficit. The patient reports that she has a psychiatric history of bipolar disorder and PTSD, she says that she is in Haldol 5 mg twice daily, Tegretol, but she does not know the dose. Her toxicology is negative, as well as BAL. PPHx: She has a psychiatric history of bipolar disorder, PTSD, she is on Haldol 5 mg twice daily, Tegretol, unknown dose, [facility], multiple [facility] hospitalization PMHx: No significant medical history Substance Hx: She denies the use of illegal drugs and alcohol Family Hx: She denies family psychiatric history Social Hx: Patient reports that she was born and raised in [place], she lives in [facility], single, poor family support, , service connected, supported by Social Security and VA benefits, he says that she is 100% service- connected, highest level of education is high school - Inpatient Certification I certify that the inpatient services were ordered in accordance with Medicare regulations governing the order. This includes certification that hospital inpatient services are reasonable and necessary and in the case of services not specified as inpatient-only under 42 CFR 419.22(n), that they are appropriately provided as inpatient services in accordance to with the 2-midnight benchmark under 43 CFR 412.3(e) I certify that inpatient psychiatric hospital services are medically necessary. Evaluation and treatment and/or diagnostic testing are expected to improve the patient's condition. The patient needs on a daily basis, active treatment furnished directly by or requiring the supervision of inpatient psychiatric facility personnel. Estimated Total Length of Stay (Days): 7 Plans for Post Hospital Care: Not yet determined Review of Systems All other systems reviewed negative except as stated in HPI Psychiatric: Reports irritability, Reports paranoia, Reports other (Manic speech and behavior, loosening of associations,) PMF - History History Provided By: Patient - Medical History Medical History: Medical History (Last Reviewed 12/18/17 @ 03:44 by Ced Rose DO) Medical history unknown Surgical history unknown - Tobacco History Second Hand Smoke Exposure: No Tobacco Use In Past 30 Days: No Smoking Status: Never smoker - Alcohol History How Often Do You Have a Drink Containing Alcohol: Unable to Obtain - Substance Use History Substance History: Unable to Obtain Medications and Allergies Active Medications: Active Medications Acetaminophen (Tylenol) 650 mg PO Q4H PRN PRN Reason: Pain 1-5 or Temp >101F Last Admin: 12/20/17 02:40 Dose: 650 mg Al Hydrox/Mg Hydrox/Simethicone (Mag-Al Plus Susp Liq) 30 ml PO Q6H PRN PRN Reason: DYSPEPSIA Al Hydroxide/Mg Hydroxide (Milk Of Magnesia Liq) 30 ml PO Q12H PRN PRN Reason: Mild Constipation Melatonin (Melatonin) 5 mg PO HS PRN PRN Reason: INSOMNIA Nicotine (Habitrol 21 Mg Patch.24 Hr) 1 patch T-DERMAL DAILY PRN PRN Reason: nicotine craving Patch Removal (Remove Old Patch) 1 each T-DERMAL DAILY DAVID Allergies Allergy/AdvReac Type Severity Reaction Status Date / Time No Allergy Information Allergy Verified 12/17/17 23:14 Available Home Medications Medication Instructions Recorded Confirmed Type Unable to Obtain Home Meds 12/17/17 12/17/17 History Exam Vital signs: Vital Signs 12/20/17 06:00 Temperature 98 F Pulse Rate 87 Respiratory Rate 17 Blood Pressure 135/75 Pulse Oximetry 100 Intake & Output 12/19/17 12/20/17 12/20/17 18:59 06:59 18:59 Weight 63.9 kg Other: Weight On Admission 63.9 kg Narrative: Psychomotor agitation, but no tremors, no withdrawal symptoms, no catatonia, no EPS - Constitutional moderate distress - Routine HEENT Exam Head: Present: normocephalic, atraumatic ENT: Present: mucous membranes moist Mental Status Examination Appearance: Dirty, Disheveled Consciousness: Alert Orientation: x4 Motor Activity: Normal gait Speech: Pressured, Rapid, Incoherent Language: Adequate Fund of Knowledge: Adequate Attention and Concentration: Easily distracted Memory: Unremarkable Mood: Manic Affect: Irritable Thought Process & Associations: Loose associations, Word salad Thought Content: Bizarre thinking, Delusional, Obsessions Hallucination Type: None Delusion Type: Bizarre, Paranoid Suicidal Ideation: No Suicidal Plan: No Suicidal Intention: No Homicidal Ideation: No Homicidal Plan: No Homicidal Intention: No Insight: Poor Judgment: Poor Assessment and Plan - Assessment (1) Unspecified psychosis Code(s): F29 - Unspecified psychosis not due to a substance or known physiological condition Status: Acute - Plan Plan: On my psychiatric evaluation today I find a patient that is quite hyperactive, restless, talkative, with marked pressured speech, grandiose and paranoid delusions, expansive affect, disruptive in the ER, who does not seem to be very reliable given his level of disorganization and loosening of associations at the moment, but she is oriented x3, and clarified that she has psychiatric history of bipolar disorder and PTSD, [facility] and she is on Haldol 5 mg twice daily, and Tegretol unknown doses. Patient presents acutely manic, her toxicology is negative, she definitely needs psychiatric hospitalization for stabilization. I am going to start Haldol 2.5 mg twice daily. Collateral information from the [facility] is crucial to complete the psychiatric assessment. He can be transferred to psychiatry. Justification for Continued Inpatient Stay: Patient is acutely psychotic and manic
[2017-12-20 08:14] LABS: Baso % (Auto) 0.9 % (0.0-2.0); Eos # (Auto) 0.2 th/mm3 (0.0-0.4); Eos % (Auto) 3.7 % (0.0-4.0); Hematocrit 33.7 % (35.0-46.0); Hemoglobin 11.3 gm/dL (11.6-15.3); Lymph # (Auto) 2.2 th/mm3 (1.0-4.8); Lymph % (Auto) 45.1 % (9.0-44.0); Mean Corpuscular HGB Conc 33.6 % (32.0-36.0); Mean Corpuscular Hemoglobin 31.7 pg (27.0-34.0); Mean Corpuscular Volume 94.2 fL (80.0-100.0); Mono # (Auto) 0.5 th/mm3 (0.0-0.9); Mono % (Auto) 10.4 % (0.0-8.0); Neut # (Auto) 1.9 th/mm3 (1.8-7.7); Neut % (Auto) 39.9 % (16.0-70.0); Platelet Count 217 th/mm3 (150-450); Red Blood Count 3.58 mil/mm3 (4.00-5.30); Red Cell Distribution Width 14.3 % (11.6-17.2); White Blood Count 4.8 th/mm3 (4.0-11.0)
[2017-12-20 08:27] LABS: Albumin 3.5 g/dL (3.4-5.0); Anion Gap 8 meq/L (5-15); Aspartate Aminotransferase 32 U/L (15-37); Blood Urea Nitrogen 9 mg/dL (7-18); Chloride 107 meq/L (98-107); Glomerular Filtration Rate Greater Than 89 mL/min (>89); Glucose,Random 85 mg/dL (74-106); Sodium 139 meq/L (136-145)
[2017-12-20 08:28] LABS: Cholesterol 141 mg/dL (120-200)
[2017-12-20 08:31] LABS: Alanine Aminotransferase 29 U/L (10-53); Alkaline Phosphatase 59 U/L (45-117); Chol/HDL Ratio 2.21 Ratio; Creatine Kinase 247 U/L (26-192); HDL Cholesterol 63.6 mg/dL (40.0-60.0); LDL Cholesterol,Calculated 69 mg/dL (0-99); Total Protein 7.6 g/dL (6.4-8.2); Triglycerides 40 mg/dL (42-150)
[2017-12-20 09:03] LABS: CKMB Percent 2.6 % (0.0-4.0); Creatine Kinase MB 6.5 ng/mL (0.5-3.6)
--- NOTE | 2017-12-20 09:40 | P.CONIM ---
History of Present Illness Service: [facility] Consult date: 12/20/17 Primary Care Provider: UNKNOWN History of Present Illness: This is a 57-year-old AAF who denies previous psychiatric history who was brought in by EMS by police, having been chemically sedated with 10 mg of Haldol 2 mg of Ativan at [facility] due to aggressive behavior. Patient was found walking in the road and was acting aggressively towards police. Patient reports that she does not remember this event and that she lives in [place] but travels to [place] frequently. She denies S/H ideation. Patient denies DM, HTN, and CVA/MO. We have been consulted for med sevenload. Review of Systems All other systems reviewed negative except as stated in HPI [facility] - History History Provided By: Patient - Medical / Surgical Hx Neg / Unobtainable Medical Problems Denied: Yes Surgical History: No Previous Surgery - Medical History Medical History: Medical History (Last Reviewed 12/18/17 @ 03:44 by Ced Rose DO) Medical history unknown Surgical history unknown - Family History Family History: Family History (Last Updated 12/20/17 @ 16:40 by Julia Smith MD) Other Family history normal - Tobacco History Second Hand Smoke Exposure: No Tobacco Use In Past 30 Days: No Smoking Status: Never smoker - Alcohol History How Often Do You Have a Drink Containing Alcohol: Never - Substance Use History Substance History: No History of Abuse, Unable to Obtain Medications and Allergies Active Medications: Active Medications Acetaminophen (Tylenol) 650 mg PO Q4H PRN PRN Reason: Pain 1-5 or Temp >101F Last Admin: 12/20/17 02:40 Dose: 650 mg Al Hydrox/Mg Hydrox/Simethicone (Mag-Al Plus Susp Liq) 30 ml PO Q6H PRN PRN Reason: DYSPEPSIA Al Hydroxide/Mg Hydroxide (Milk Of Magnesia Liq) 30 ml PO Q12H PRN PRN Reason: Mild Constipation Melatonin (Melatonin) 5 mg PO HS PRN PRN Reason: INSOMNIA Nicotine (Habitrol 21 Mg Patch.24 Hr) 1 patch T-DERMAL DAILY PRN PRN Reason: nicotine craving Patch Removal (Remove Old Patch) 1 each T-DERMAL DAILY DAVID Allergies Allergy/AdvReac Type Severity Reaction Status Date / Time No Allergy Information Allergy Verified 12/17/17 23:14 Available Home Medications Medication Instructions Recorded Confirmed Type Unable to Obtain Home Meds 12/17/17 12/17/17 History Exam Vital signs: Vital Signs 12/20/17 06:00 12/20/17 07:55 Temperature 98 F Pulse Rate 87 Respiratory Rate 17 17 Blood Pressure 135/75 Pulse Oximetry 100 Intake & Output 12/19/17 12/20/17 12/20/17 18:59 06:59 18:59 Weight 63.9 kg Other: Weight On Admission 63.9 kg Narrative: GENERAL: well nourished AAF, in NAD SKIN: Warm and dry. HEAD: Normocephalic. EYES: No scleral icterus. No injection or drainage. NECK: Supple, trachea midline. No JVD or lymphadenopathy. CARDIOVASCULAR: Regular rate and rhythm without murmurs, gallops, or rubs. RESPIRATORY: Breath sounds equal bilaterally. No accessory muscle use. GASTROINTESTINAL: Abdomen soft, non-tender, nondistended. MUSCULOSKELETAL: No cyanosis, or edema. BACK: Nontender without obvious deformity. No CVA tenderness. PSYCH: patient very talkative, loose associations, pleasant Results - Labs CBC & Chem 7: 12/20/17 07:41 12/20/17 07:41 Labs: Laboratory Results - last 24 hr 12/20/17 12/20/17 07:41 07:41 WBC 4.8 RBC 3.58 L Hgb 11.3 L Hct 33.7 L MCV 94.2 MCH 31.7 MCHC 33.6 RDW 14.3 Plt Count 217 MPV 8.0 Neut % (Auto) 39.9 Lymph % (Auto) 45.1 H [place] % (Auto) 10.4 H Eos % (Auto) 3.7 Baso % (Auto) 0.9 Neut # (Auto) 1.9 Lymph # (Auto) 2.2 [place] # (Auto) 0.5 Eos # (Auto) 0.2 Baso # (Auto) 0.0 WBC Differential . Differential Comment Auto diff final Sodium 139 Potassium 4.0 D Chloride 107 Carbon Dioxide 24.0 Anion Gap 8 BUN 9 Creatinine 0.48 L Estimated GFR Greater than 89 Random Glucose 85 Calcium 9.0 Total Bilirubin 0.3 AST 32 ALT 29 Alkaline Phosphatase 59 Total Creatine Kinase 247 H CK-MB (CK-2) 6.5 H CK-MB (CK-2) % 2.6 Total Protein 7.6 Albumin 3.5 Triglycerides 40 L Cholesterol 141 LDL Cholesterol, Calc 69 HDL Cholesterol 63.6 H Cholesterol/HDL Ratio 2.21 Assessment and Plan - Assessment (1) Unspecified psychosis Code(s): F29 - Unspecified psychosis not due to a substance or known physiological condition Status: Acute (2) Rhabdomyolysis Code(s): M62.82 - Rhabdomyolysis Status: Acute - Plan This is a 57-year-old AAF who denies previous psychiatric history who was brought in by EMS by police for aggressive behavior and kemp Acted, found to have Rhabdo and Hypokalemia, we have been consulted for med mgmt, HD#2 1. Acute psychosis, hx of Bipolar Disorder and PTSD -managed by Psych -UDS neg, UA neg for UTI -Cont. Haldol 2. Rhabdomyolysis -CPK 247 today from 411 on 12/17 -Repeat CPK level i nAM -Encourage increase PO intake 3. Hypokalemia, resolved -K 4 today, 2.7 on admission, -F/U BMP in am 4. DVT prophylaxis: ambulatory 5. Anemia -Hgb 11.3, likely dilutional from previous IVF's -Cont. to monitor 6. Dispo: F/U CPK in AM Code Status: full Discussed Condition With: patient, RN
--- NOTE | 2017-12-20 12:05 | P.PNPSY ---
Subjective Remarks: Patient seen for follow up; chart reviewed. Discussion with nursing staff reported patient with poor sleep last night. Patient was found in the hallway, noted hyperverbal, pressured speech, disorganized, with flight of ideas. Patient unable to recall events that brought her into the hospital, stating that she was brought in for chest pain. Patient later was able to recall having been found on sidewalk of a convenience store where she was brought in by SHAHEED. As per Main Act, patient noted with difficulty walking, standing in the middle of the road, fell and had AMS. She goes on tangent recalling family losses. She also mentions that she gets manic only when she gets . Plan to resume patient on haldol and tegretol was reviewed but became oppositional about taking it as directed, stating that she only takes as needed. Review of Systems All other systems reviewed negative except as stated in HPI Mental Status Examination Appearance: Disheveled Consciousness: Alert Orientation: x4 Motor Activity: Normal gait Speech: Pressured, Rapid Language: Adequate Fund of Knowledge: Inadequate Attention and Concentration: Easily distracted Memory: Unremarkable Mood: Manic Affect: Irritable Thought Process & Associations: Loose associations, Disorganized (at times), Tangential Thought Content: Bizarre thinking, Delusional, Obsessions Hallucination Type: None Delusion Type: Bizarre, Paranoid Suicidal Ideation: No Suicidal Plan: No Suicidal Intention: No Homicidal Ideation: No Homicidal Plan: No Homicidal Intention: No Insight: Poor Judgment: Poor Assessment and Plan - Assessment (1) Unspecified psychosis Code(s): F29 - Unspecified psychosis not due to a substance or known physiological condition Status: Acute - Plan Plan: Patient with labile mood, irritable, disorganized at times, tangential, pressured speech. Will start patient on Haldol 5mg PO BID, tegretol 200mg PO BID for mood stabilization. Will start petition for involuntary admission, second opinion requested; has capacity to consent for treatment. Monitor mood and behavior. Discharge planning in progress. Justification for Continued Inpatient Stay: At risk for further decompensation at lower level of care.
[2017-12-20] MEDS: carBAMazepine 200 MG Tablet PO SCH ×2 (13:54→20:55)
[2017-12-20] MEDS: Haloperidol 5 MG Tablet PO SCH ×2 (13:54→20:55)
--- NOTE | 2017-12-20 15:26 | P.CONPSY ---
Provisional Diagnosis Admission Date: December 19, 2017 16:00 [place] I.: Bipolar disorder, PTSD History of Present Illness Primary Care Provider: UNKNOWN History of Present Illness: The patient is a 57-year-old -[place] woman, domiciled in [place], , unemployed, who claims that is from the [facility], denies previous psychiatric history, denies previous suicide attempts, denies psychiatric hospitalizations, she denies use of illegal drugs and alcohol, who was brought in by EMS by police, having been chemically sedated with 10 mg of Haldol 2 mg of Ativan at [facility] due to aggressive behavior. Apparently she was walking in the middle of the road acting aggressively towards police. Patient wakes up to loud verbal stimulation, however is very somnolent and does not answer any questions. She was found by me restrained in 4 points in the ER. She was quite sleepy, difficult to arouse, would talk a couple of words and will fall sleep again, unable to participate and provide much information for the psychiatric assessment at the moment. She does state that she is in [place]. She says that in November 2017. She knows that the enrollment services vice president is Kane Murguia. Denies pain, denies distress, she denies suicidal and homicidal ideation, denies visual and auditory hallucinations, but is unable to answer further questions. [facility] - History History Provided By: Patient - Medical History Medical History: Medical History (Last Reviewed 12/18/17 @ 03:44 by Ced Rose DO) Medical history unknown Surgical history unknown - Family History Family History: Family History (Last Updated 12/20/17 @ 16:40 by Julia Smith MD) Other Family history normal - Tobacco History Second Hand Smoke Exposure: No Tobacco Use In Past 30 Days: No Smoking Status: Never smoker - Alcohol History How Often Do You Have a Drink Containing Alcohol: Unable to Obtain - Substance Use History Substance History: Unable to Obtain Medications and Allergies Active Medications: Active Medications Acetaminophen (Tylenol) 650 mg PO Q4H PRN PRN Reason: Pain 1-5 or Temp >101F Last Admin: 12/20/17 13:54 Dose: 650 mg Al Hydrox/Mg Hydrox/Simethicone (Mag-Al Plus Susp Liq) 30 ml PO Q6H PRN PRN Reason: DYSPEPSIA Al Hydroxide/Mg Hydroxide (Milk Of Pedro Roy) 30 ml PO Q12H PRN PRN Reason: Mild Constipation Carbamazepine (Tegretol) 200 mg PO BID [facility] Last Admin: 12/20/17 13:54 Dose: 200 mg Haloperidol (Haldol) 5 mg PO BID [facility] Last Admin: 12/20/17 13:54 Dose: 5 mg Hydroxyzine HCl (Atarax) 50 mg PO Q6H PRN PRN Reason: ANXIETY Melatonin (Melatonin) 5 mg PO HS PRN PRN Reason: INSOMNIA Nicotine (Habitrol 21 Mg Patch.24 Hr) 1 patch T-DERMAL DAILY PRN PRN Reason: nicotine craving Patch Removal (Remove Old Patch) 1 each T-DERMAL DAILY [facility] Last Admin: 12/20/17 09:50 Dose: Not Given Allergies Allergy/AdvReac Type Severity Reaction Status Date / Time No Allergy Information Allergy Verified 12/17/17 23:14 Available Home Medications Medication Instructions Recorded Confirmed Type Unable to Obtain Home Meds 12/17/17 12/17/17 History Exam Vital signs: Vital Signs 12/20/17 06:00 12/20/17 07:55 Temperature 98 F Pulse Rate 87 Respiratory Rate 17 17 Blood Pressure 135/75 Pulse Oximetry 100 Intake & Output 12/19/17 12/20/17 12/20/17 18:59 06:59 18:59 Weight 63.9 kg Other: Weight On Admission 63.9 kg Mental Status Examination Appearance: Dirty, Disheveled Consciousness: Alert Orientation: x4 Motor Activity: Normal gait Speech: Pressured, Rapid, Incoherent Language: Adequate Fund of Knowledge: Adequate Attention and Concentration: Easily distracted Memory: Unremarkable Mood: Manic Affect: Irritable Thought Process & Associations: Loose associations, Word salad Thought Content: Bizarre thinking, Delusional, Obsessions Hallucination Type: None Delusion Type: Bizarre, Paranoid Suicidal Ideation: No Suicidal Plan: No Suicidal Intention: No Homicidal Ideation: No Homicidal Plan: No Homicidal Intention: No Insight: Poor Judgment: Poor Assessment and Plan - Assessment (1) Unspecified psychosis Code(s): F29 - Unspecified psychosis not due to a substance or known physiological condition Status: Acute - Plan Plan: I have seen and examined this patient, reviewed documentation, I agree and concur with Dr. Mclean assessment and plan. Justification for Continued Inpatient Stay: Continue hospitalization.
[2017-12-20 20:22] LABS: Hemoglobin A1c 6.2 % (4.3-6.0)
[2017-12-21] MEDS: Acetaminophen 325 MG Tablet PO PRN ×3 (01:19→21:10)
--- NOTE | 2017-12-21 07:18 | P.PN ---
Physical Exam Vital signs: Vital Signs 12/20/17 07:55 12/20/17 17:47 12/21/17 06:00 Temperature 98.1 F 98.1 F Pulse Rate 81 99 H Respiratory Rate 17 17 18 Blood Pressure 116/83 120/91 H Pulse Oximetry 98 100 Results - Labs CBC & Chem 7: 12/20/17 07:41 12/20/17 07:41 Laboratory Results - last 24 hr 12/20/17 12/20/17 12/20/17 07:41 07:41 07:41 WBC 4.8 RBC 3.58 L Hgb 11.3 L Hct 33.7 L MCV 94.2 MCH 31.7 MCHC 33.6 RDW 14.3 Plt Count 217 MPV 8.0 Neut % (Auto) 39.9 Lymph % (Auto) 45.1 H [place] % (Auto) 10.4 H Eos % (Auto) 3.7 Baso % (Auto) 0.9 Neut # (Auto) 1.9 Lymph # (Auto) 2.2 [place] # (Auto) 0.5 Eos # (Auto) 0.2 Baso # (Auto) 0.0 WBC Differential . Differential Comment Auto diff final Sodium 139 Potassium 4.0 D Chloride 107 Carbon Dioxide 24.0 Anion Gap 8 BUN 9 Creatinine 0.48 L Estimated GFR Greater than 89 Random Glucose 85 Hemoglobin A1c 6.2 H Calcium 9.0 Total Bilirubin 0.3 AST 32 ALT 29 Alkaline Phosphatase 59 Total Creatine Kinase 247 H CK-MB (CK-2) 6.5 H CK-MB (CK-2) % 2.6 Total Protein 7.6 Albumin 3.5 Triglycerides 40 L Cholesterol 141 LDL Cholesterol, Calc 69 HDL Cholesterol 63.6 H Cholesterol/HDL Ratio 2.21 Assessment and Plan - Assessment (1) Unspecified psychosis Code(s): F29 - Unspecified psychosis not due to a substance or known physiological condition Status: Acute (2) Rhabdomyolysis Code(s): M62.82 - Rhabdomyolysis Status: Acute - Plan This is a 57-year-old AAF who denies previous psychiatric history who was brought in by EMS by police for aggressive behavior and kemp Acted, found to have Rhabdo and Hypokalemia, we have been consulted for med mgmt, HD#3 1. Acute psychosis, hx of Bipolar Disorder and PTSD -managed by Psych -UDS neg, UA neg for UTI -Cont. Haldol 2. Rhabdomyolysis -CPK 247 on 12/21 from 411 on 12/17, pending AM labs -Repeat CPK level in AM -Encourage increase PO intake 3. Hypokalemia, resolved -K 4 today, 2.7 on admission, -F/U BMP in am 4. DVT prophylaxis: ambulatory 5. Anemia -Hgb 11.3, likely dilutional from previous IVF's -Cont. to monitor 6. Dispo: F/U CPK in AM
[2017-12-21 07:47] LABS: Baso % (Auto) 0.8 % (0.0-2.0); Eos # (Auto) 0.2 th/mm3 (0.0-0.4); Eos % (Auto) 5.2 % (0.0-4.0); Hematocrit 37.1 % (35.0-46.0); Hemoglobin 12.3 gm/dL (11.6-15.3); Lymph # (Auto) 2.2 th/mm3 (1.0-4.8); Mean Corpuscular HGB Conc 33.1 % (32.0-36.0); Mean Corpuscular Hemoglobin 31.2 pg (27.0-34.0); Mean Corpuscular Volume 94.3 fL (80.0-100.0); Mean Platelet Volume 7.4 fL (7.0-11.0); Mono # (Auto) 0.5 th/mm3 (0.0-0.9); Mono % (Auto) 11.4 % (0.0-8.0); Neut # (Auto) 1.4 th/mm3 (1.8-7.7); Neut % (Auto) 32.6 % (16.0-70.0); Platelet Count 225 th/mm3 (150-450); Red Blood Count 3.94 mil/mm3 (4.00-5.30); Red Cell Distribution Width 14.7 % (11.6-17.2); White Blood Count 4.4 th/mm3 (4.0-11.0)
[2017-12-21] MEDS: carBAMazepine 200 MG Tablet PO SCH ×2 (08:11→21:09)
[2017-12-21] MEDS: Haloperidol 5 MG Tablet PO SCH ×2 (08:12→21:08)
[2017-12-21 08:15] LABS: Anion Gap 8 meq/L (5-15); Blood Urea Nitrogen 11 mg/dL (7-18); Calcium 8.8 mg/dL (8.5-10.1); Carbon Dioxide 27.8 meq/L (21.0-32.0); Chloride 104 meq/L (98-107); Glomerular Filtration Rate Greater Than 89 mL/min (>89); Glucose,Random 92 mg/dL (74-106); Potassium 4.2 meq/L (3.5-5.1); Sodium 140 meq/L (136-145)
[2017-12-21 08:18] LABS: Creatine Kinase 135 U/L (26-192)
--- NOTE | 2017-12-21 16:46 | P.PNPSY ---
Subjective Remarks: Reviewed electronic medical records and discussed case with staff. Follow-up was conducted in exam room with ELEANOR Mckeon present. Patient continues to be manic with rapid and pressured speech. She complains that her knee is "killing me". She goes on to state that "I will need psychiatry my mind is clear". Mental Status Examination Appearance: Dirty, Disheveled Consciousness: Alert Orientation: x4 Motor Activity: Normal gait Speech: Pressured, Rapid, Incoherent Language: Adequate Fund of Knowledge: Adequate Attention and Concentration: Easily distracted Memory: Unremarkable Mood: Manic Affect: Irritable Thought Process & Associations: Loose associations, Word salad Thought Content: Bizarre thinking, Delusional, Obsessions Hallucination Type: None Delusion Type: Bizarre, Paranoid Suicidal Ideation: No Suicidal Plan: No Suicidal Intention: No Homicidal Ideation: No Homicidal Plan: No Homicidal Intention: No Insight: Poor Judgment: Poor Assessment and Plan - Assessment (1) Unspecified psychosis Code(s): F29 - Unspecified psychosis not due to a substance or known physiological condition Status: Acute - Plan Plan: Patient will be reevaluated Saturday by the attending psychiatrist. Continue with current treatment plan. Justification for Continued Inpatient Stay: Moving this patient to a less restrictive environment would likely result in decompensation.
[2017-12-22] MEDS: Acetaminophen 325 MG Tablet PO PRN ×2 (09:11→20:27)
[2017-12-22] MEDS: carBAMazepine 200 MG Tablet PO SCH ×2 (09:18→20:27)
[2017-12-22] MEDS: Haloperidol 5 MG Tablet PO SCH ×2 (09:18→20:26)
--- NOTE | 2017-12-22 11:49 | P.PNIM ---
Subjective Interval history: This is a 57-year-old AAF who denies previous psychiatric history who was brought in by EMS by police, having been chemically sedated with 10 mg of Haldol 2 mg of Ativan at [facility] due to aggressive behavior. Patient was found walking in the road and was acting aggressively towards police. Patient reports that she does not remember this event and that she lives in [place] but travels to [place] frequently. She denies S/H ideation. Patient denies DM, HTN, and CVA/ME. We have been consulted for med mgmt. SEEN AMBULATING IN THE GROUP ROOM DW RN AND PT AND CM Physical Exam Vital signs: Vital Signs 12/21/17 18:04 12/22/17 06:49 Temperature 97.6 F 98.1 F Pulse Rate 71 68 Respiratory Rate 18 16 Blood Pressure 130/69 115/66 Pulse Oximetry 99 100 Narrative: GENERAL: well nourished AAF, in NAD SKIN: Warm and dry. HEAD: Normocephalic. EYES: No scleral icterus. No injection or drainage. NECK: Supple, trachea midline. No JVD or lymphadenopathy. CARDIOVASCULAR: Regular rate and rhythm without murmurs, gallops, or rubs. RESPIRATORY: Breath sounds equal bilaterally. No accessory muscle use. GASTROINTESTINAL: Abdomen soft, non-tender, nondistended. MUSCULOSKELETAL: No cyanosis, or edema. BACK: Nontender without obvious deformity. No CVA tenderness. PSYCH: patient very talkative, loose associations, pleasant Results - Labs CBC & Chem 7: 12/21/17 07:30 12/21/17 07:30 Assessment and Plan - Assessment (1) Unspecified psychosis Code(s): F29 - Unspecified psychosis not due to a substance or known physiological condition Status: Acute (2) Rhabdomyolysis Code(s): M62.82 - Rhabdomyolysis Status: Acute - Plan This is a 57-year-old AAF who denies previous psychiatric history who was brought in by EMS by police for aggressive behavior and kemp Acted, found to have Rhabdo and Hypokalemia, we have been consulted for med mgmt, 1. Acute psychosis, hx of Bipolar Disorder and PTSD -managed by Psych -UDS neg, UA neg for UTI -Cont. Haldol 2. Rhabdomyolysis -CPK 247 today from 411 on 12/17 -Repeat CPK level i nAM -Encourage increase PO intake 3. Hypokalemia, resolved -K 4 today, 2.7 on admission, -F/U BMP in am 4. DVT prophylaxis: ambulatory 5. Anemia -Hgb 11.3, likely dilutional from previous IVF's -Cont. to monitor 6. CPK HAS RETURNED TO NORMAL Code Status: FULL CODE Discussed Condition With: RN AND PT Discharge Planning: PENDING PSYCHIATRIC CLEARANCE
--- NOTE | 2017-12-22 15:04 | P.PNPSY ---
Subjective Remarks: Reviewed electronic medical records and discussed case with staff. Follow-up was conducted in the [facility] area with ELEANOR Engle present. Patient is very anxious. She is rambling , with loose association and tangential. She was offered atarax but refused the medication. Patient is asking for Haldol, will place a one time order for additional Haldol. Patient states that when she leave [facility] Review of Systems All other systems reviewed negative except as stated in HPI Mental Status Examination Appearance: Appropriate Consciousness: Alert Orientation: x4 Motor Activity: Normal gait Speech: Pressured, Rapid Language: Adequate Fund of Knowledge: Inadequate Attention and Concentration: Easily distracted Memory: Unremarkable Mood: Manic Affect: Irritable Thought Process & Associations: Loose associations, Disorganized (at times), Tangential Thought Content: Bizarre thinking, Delusional, Obsessions Hallucination Type: None Delusion Type: Bizarre, Paranoid Suicidal Ideation: No Suicidal Plan: No Suicidal Intention: No Homicidal Ideation: No Homicidal Plan: No Homicidal Intention: No Insight: Poor Judgment: Poor Assessment and Plan - Assessment (1) Unspecified psychosis Code(s): F29 - Unspecified psychosis not due to a substance or known physiological condition Status: Acute - Plan Plan: Continue current plan of care. Will be seen by the Psychiatrist on Saturday. Justification for Continued Inpatient Stay: Moving patient to a less restrictive environment may result in her decompensation.
[2017-12-22] MEDS ORDERED: Haloperidol 5 MG Tablet PO ONE (15:06)
[2017-12-23] MEDS: Acetaminophen 325 MG Tablet PO PRN ×2 (04:58→14:38)
[2017-12-23] MEDS: Haloperidol 5 MG Tablet PO SCH ×2 (08:07→20:18)
[2017-12-23] MEDS: carBAMazepine 200 MG Tablet PO SCH ×2 (08:07→20:18)
--- NOTE | 2017-12-23 12:52 | P.PNIM ---
Subjective Interval history: SEEN IN THE DAY ROOM NO NEW COMPLAINTS DW RN AND PT Physical Exam Vital signs: Vital Signs 12/23/17 06:00 Temperature 97.6 F Pulse Rate 100 H Respiratory Rate 17 Blood Pressure 100/56 L Pulse Oximetry 98 Intake & Output 12/22/17 12/23/17 12/23/17 18:59 06:59 18:59 Weight 64.4 kg Narrative: GENERAL: well nourished AAF, in NAD SKIN: Warm and dry. HEAD: Normocephalic. EYES: No scleral icterus. No injection or drainage. NECK: Supple, trachea midline. No JVD or lymphadenopathy. CARDIOVASCULAR: Regular rate and rhythm without murmurs, gallops, or rubs. RESPIRATORY: Breath sounds equal bilaterally. No accessory muscle use. GASTROINTESTINAL: Abdomen soft, non-tender, nondistended. MUSCULOSKELETAL: No cyanosis, or edema. BACK: Nontender without obvious deformity. No CVA tenderness. PSYCH: patient very talkative, loose associations, pleasant Results - Labs CBC & Chem 7: 12/21/17 07:30 12/21/17 07:30 - Procedures NONE Assessment and Plan - Assessment (1) Unspecified psychosis Code(s): F29 - Unspecified psychosis not due to a substance or known physiological condition Status: Acute (2) Rhabdomyolysis Code(s): M62.82 - Rhabdomyolysis Status: Acute - Plan This is a 57-year-old AAF who denies previous psychiatric history who was brought in by EMS by police for aggressive behavior and kemp Acted, found to have Rhabdo and Hypokalemia, we have been consulted for med mgmt, 1. Acute psychosis, hx of Bipolar Disorder and PTSD -managed by Psych -UDS neg, UA neg for UTI -Cont. Haldol 2. Rhabdomyolysis -CPK 247 today from 411 on 12/17 -Repeat CPK level i nAM -Encourage increase PO intake 3. Hypokalemia, resolved -K 4 today, 2.7 on admission, -F/U BMP in am 4. DVT prophylaxis: ambulatory 5. Anemia -Hgb 11.3, likely dilutional from previous IVF's -Cont. to monitor 6. CPK HAS RETURNED TO NORMAL Code Status: FULL CODE Discussed Condition With: RN AND PT Discharge Planning: PENDING PSYCHIATRIC CLEARANCE
--- NOTE | 2017-12-23 15:45 | P.PNPSY ---
Subjective Remarks: Reviewed electronic medical records and discussed case with staff. Follow-up was conducted in the hallway with ELEANOR Engle present. Patient continues to be manic. I have increased her Haldol to 10 mg twice a day to target that christie. She claims that she slept well however her nurse states that the staff reported she did not sleep well last night. She reports that her appetite is good. Mental Status Examination Appearance: Appropriate Consciousness: Alert Orientation: x4 Motor Activity: Normal gait Speech: Pressured, Rapid Language: Adequate Fund of Knowledge: Inadequate Attention and Concentration: Easily distracted Memory: Unremarkable Mood: Manic Affect: Irritable Thought Process & Associations: Loose associations, Disorganized (at times), Tangential Thought Content: Bizarre thinking, Delusional, Obsessions Hallucination Type: None Delusion Type: Bizarre, Paranoid Suicidal Ideation: No Suicidal Plan: No Suicidal Intention: No Homicidal Ideation: No Homicidal Plan: No Homicidal Intention: No Insight: Poor Judgment: Poor Assessment and Plan - Assessment (1) Unspecified psychosis Code(s): F29 - Unspecified psychosis not due to a substance or known physiological condition Status: Acute - Plan Plan: Patient will be reevaluated tomorrow by the attending psychiatrist. Continue with current treatment plan. Justification for Continued Inpatient Stay: Moving this patient to a less restrictive environment would likely result in decompensation.
[2017-12-24] MEDS ORDERED: carBAMazepine 200 MG Tablet PO SCH (09:00)
[2017-12-24] MEDS: Haloperidol 5 MG Tablet PO SCH ×2 (09:00→20:27)
[2017-12-24] MEDS: Acetaminophen 325 MG Tablet PO PRN (09:02)
--- NOTE | 2017-12-24 14:27 | P.PNPSY ---
Subjective Remarks: Patient seen for follow up; chart reviewed. Discussion with nursing staff reported patient continues to be noted to be hyperverbal, tangential with poor sleep. Patient was found ambulating on the unit noted to be, cooperative. Patient states that she has been sleeping better, her mood has been "good", clear and wanting to be discharged back to her residence. Patient mentions having taken trazodone in the past which has helped. Patient denies any perceptional services at this time stating the last discharge was about 30 years ago. Patient reports eating and drinking well, denies any suicidal or homicidal ideations. Patient states that she would like to follow-up with outpatient psychiatrist upon discharge. Noted to be less tangential, able to interact more appropriately during interview, noted with less pressured speech. Review of Systems All other systems reviewed negative except as stated in HPI Mental Status Examination Appearance: Appropriate Consciousness: Alert Orientation: x4 Motor Activity: Normal gait Speech: Pressured, Rapid Language: Adequate Fund of Knowledge: Inadequate Attention and Concentration: Easily distracted (Improving) Memory: Unremarkable Mood: Manic Affect: Irritable Thought Process & Associations: Disorganized (Lessening), Tangential (Lessening) Thought Content: Bizarre thinking, Delusional (Lessening) Hallucination Type: None Delusion Type: Paranoid Suicidal Ideation: No Suicidal Plan: No Suicidal Intention: No Homicidal Ideation: No Homicidal Plan: No Homicidal Intention: No Insight: Fair Judgment: Impulsive Assessment and Plan - Assessment (1) Unspecified psychosis Code(s): F29 - Unspecified psychosis not due to a substance or known physiological condition Status: Acute - Plan Plan: Patient's mood has improved, less irritability, cooperative and compliant with treatment. Will continue to titrate carbamazepine to 200mg/300mg, continue Haldol 10mg BID, continue to monitor mood and behavior. Patient's POA will visit this evening to assess patient's baseline. Discharge planning in progress. Justification for Continued Inpatient Stay: At risk for further decompensation at lower level of care.
[2017-12-24] MEDS: carBAMazepine 200 MG Tablet PO SCH ×2 (15:02→20:27)
--- NOTE | 2017-12-24 16:55 | P.PN ---
Subjective Interval history: Follow up for rhabdomyolysis: pt. ambulating, rapid speech, denies any muscle pain, no cp, no sob. Eating and drinking well. Denies itching to facial lesions Physical Exam Vital signs: Vital Signs 12/24/17 06:15 Pulse Rate 88 Respiratory Rate 17 Blood Pressure 105/66 Pulse Oximetry 98 Narrative: GENERAL: well nourished AAF, in NAD SKIN: Skin lesions noted to neck and face as well as back, discolored. No exudate. HEAD: Normocephalic. EYES: No scleral icterus. No injection or drainage. NECK: Supple, trachea midline. No JVD or lymphadenopathy. CARDIOVASCULAR: Regular rate and rhythm without murmurs, gallops, or rubs. RESPIRATORY: Breath sounds equal bilaterally. No accessory muscle use. GASTROINTESTINAL: Abdomen soft, non-tender, nondistended. PSYCH: patient very talkative, loose associations, pleasant Results - Labs CBC & Chem 7: 12/21/17 07:30 12/21/17 07:30 - Procedures NONE Assessment and Plan - Assessment (1) Unspecified psychosis Code(s): F29 - Unspecified psychosis not due to a substance or known physiological condition Status: Acute (2) Rhabdomyolysis Code(s): M62.82 - Rhabdomyolysis Status: Acute - Plan This is a 57-year-old AAF who denies previous psychiatric history who was brought in by EMS by police for aggressive behavior and Main Acted, found to have Rhabdo and Hypokalemia, [facility] consulted for med management Acute psychosis, hx of Bipolar Disorder and PTSD -managed by Psych -UDS neg, UA neg for UTI -Cont. Haldol, Tegretol, trazodone Rhabdomyolysis, resolved -Initially CPK 411 now 135. -Encourage increase PO intake Hypokalemia, resolved -K 4.2 12/21 Anemia -Hgb 11.3, likely dilutional from previous IVF's -Cont. to monitor Has skin lesions, patient indicates she had some type of reaction due to medications. This has been ongoing since July, they are healing well. Complains of occasional itching. Was on steroids and was seen by rheumatology. Pt. unreliable historian Continue with Vistaril as needed Patient ambulatory, no need for DVT prophylax Patient stable, has good p.o. intake. Will sign off for now, reconsult if needed
[2017-12-24] MEDS ORDERED: traZODone 50 MG Tablet PO PRN (21:00)
[2017-12-25] MEDS: Acetaminophen 325 MG Tablet PO PRN ×2 (05:46→15:40)
[2017-12-25] MEDS: carBAMazepine 200 MG Tablet PO SCH ×2 (08:37→20:15)
[2017-12-25] MEDS: Haloperidol 5 MG Tablet PO SCH ×2 (08:38→20:15)
--- NOTE | 2017-12-25 09:20 | P.TTN ---
- Patient Problems Problems: 1. Discharge planning 2. Medication compliance 3. Knowledge deficit 4. Lack of coping skills - Progress Toward Goals Provider Present: Dr. Carmen Mclean (Dr. Mclean is titrating medication Tegretol, patient may need to stay for 1 more day of stabilization.) Psychiatric Counselors Present: Monster Elizondo Jr., [facility] (Counselor working with POA to arrange safe discharge plan, patient will return to her residence where she resides with the POA domiciled in the [facility]) Group Spec/RT/OT/ALVARADO Present: MARCO Sharp (Patient attends group, remains hypomanic, mostly appropriate for group.) - Documentation Teaching Recipient: Patient
--- NOTE | 2017-12-25 12:45 | P.PNPSY ---
Subjective Remarks: Patient seen for follow up; chart reviewed. Discussion with nursing staff reported that patient Carreno of hyperverbal speech at times but no behavioral disturbances. Patient was found ambulating on unit noted B, cooperative. Patient states that she wants to continue outpatient treatment reports feeling well with the increase in Tegretol and plans to continue treatment. Patient expecting return back home with her power of electronic specialist. Patient denies any adverse drug reaction from regimen. Reports her mood has been "good" denying physical complaints at this time. Patient denies any suicidal homicidal ideations. Denies any perceptional disturbances. Review of Systems All other systems reviewed negative except as stated in HPI Mental Status Examination Appearance: Appropriate Consciousness: Alert Orientation: x4 Motor Activity: Normal gait Speech: Pressured, Rapid Language: Adequate Fund of Knowledge: Inadequate Attention and Concentration: Easily distracted (Improving) Memory: Unremarkable Mood: Manic Affect: Irritable Thought Process & Associations: Intact, Logical, Tangential (Lessening) Thought Content: Appropriate Hallucination Type: None Delusion Type: Paranoid (lessening) Suicidal Ideation: No Suicidal Plan: No Suicidal Intention: No Homicidal Ideation: No Homicidal Plan: No Homicidal Intention: No Insight: Fair Judgment: Impulsive Assessment and Plan - Assessment (1) Unspecified psychosis Code(s): F29 - Unspecified psychosis not due to a substance or known physiological condition Status: Acute - Plan Plan: Patient this time noted with improvement in mood, able to engage appropriately in interview, no longer noted to be hyperverbal. We will continue current treatment. We will continue to monitor mood and behavior. Patient likely for discharge tomorrow. Discharge planning in progress. Justification for Continued Inpatient Stay: At risk of further decompensation a lower level of care.
[2017-12-26] MEDS: Acetaminophen 325 MG Tablet PO PRN (03:25)
[2017-12-26 04:52] VITALS: BP 115/55; PULSE 95; RESP 16; TEMP 97.7; O2SAT 97
[2017-12-26] MEDS: Haloperidol 5 MG Tablet PO SCH (08:40)
[2017-12-26] MEDS: carBAMazepine 200 MG Tablet PO SCH (08:40)
--- NOTE | 2017-12-26 16:31 | P.DSPSY ---
Psychiatry Discharge Summary Inpatient Psychiatric care?: Yes Advance Directives: No Mental Health Advance Directive: No Health Care Proxy: No - Admission Admission Date: December 19, 2017 16:00 - Admission Diagnosis (1) Unspecified psychosis Code(s): F29 - Unspecified psychosis not due to a substance or known physiological condition Brief History: Late entry. Patient was seen 12/18/2017 and 12/19/2017. Initial encounter in the ER 12/18/2017: The patient is a 57-year-old - [place] woman, domiciled in [place], , unemployed, who claims that is from the [facility], denies previous psychiatric history, denies previous suicide attempts, denies psychiatric hospitalizations, she denies use of illegal drugs and alcohol, who was brought in by EMS by police, having been chemically sedated with 10 mg of Haldol 2 mg of Ativan at [facility] due to aggressive behavior. Apparently she was walking in the middle of the road acting aggressively towards police. Patient wakes up to loud verbal stimulation , however is very somnolent and does not answer any questions. She was found by me restrained in 4 points in the ER. She was quite sleepy, difficult to arouse, would talk a couple of words and will fall sleep again, unable to participate and provide much information for the psychiatric assessment at the moment. She does state that she is in [place]. She says that in November 2017. She knows that the vice president diversity is Kane Murguia. Denies pain, denies distress, she denies suicidal and homicidal ideation, denies visual and auditory hallucinations, but is unable to answer further questions. Second encounter 12/19/2017: The patient is a 57 -[place] woman, domiciled in [place], , unemployed, she reports that she is a and is at 100% service-connected, with a psychiatric history of bipolar disorder, PTSD, multiple psychiatric admissions, suicidal attempts, first time at [place] , she is on Haldol 5 mg twice daily, Tegretol, but she does not know the dose, outpatient care in the [place], no significant medical history, she denies the use of illegal drugs and alcohol, who was brought in by EMS by police, having been chemically sedated with 10 mg of Haldol 2 mg of Ativan at [facility] due to aggressive behavior. Yesterday the patient was very sedated and poorly cooperative, and I could not get much information. The patient was seen today for psychiatric reevaluation. The patient was widely discussed with primary medical team. Today the patient is awake, cooperative, but extremely restless, very talkative, with clear pressured speech , very disorganized and tangential, with steven loosening of associations paranoia and grandiose delusions. She is very expansive, and stated that she is going to buy fly thickest to [place] to all the nurses and doctors in the ER. The patient reports that she is very happy, but she needs to go, she needs to smoke, she is speaking to me in Pashto and Hebrew at the same time. She denies suicidal and homicidal ideation, she denies visual and auditory hallucinations. At some point she becomes quite verbally hostile, but she is just dilated. As per nurse, the patient has being very difficult to redirect, walking in the ER, entering into others patient's room. The patient is fully oriented x3, she has no fluctuation of consciousness, she does not have a prominent attention deficit. The patient reports that she has a psychiatric history of bipolar disorder and PTSD, she says that she is in Haldol 5 mg twice daily, Tegretol, but she does not know the dose. Her toxicology is negative, as well as BAL. PPHx: She has a psychiatric history of bipolar disorder, PTSD, she is on Haldol 5 mg twice daily, Tegretol, unknown dose, [facility], [facility] PMHx: No significant medical history Substance Hx: She denies the use of illegal drugs and alcohol Family Hx: She denies family psychiatric history Social Hx: Patient reports that she was born and raised in [place], she lives in [place] along, single, poor family support, , service connected, supported by Social Security and [facility] benefits, he says that she is 100% service- connected, highest level of education is high school Tobacco Use In Past 30 Days: No How Often Do You Have a Drink Containing Alcohol: Unable to Obtain Hospital Course: The patient is a 57-year-old -J[place] woman, domiciled in [place], , unemployed, who claims that is from the [facility], denies previous psychiatric history, denies previous suicide attempts, denies psychiatric hospitalizations, she denies use of illegal drugs and alcohol, who was brought in by EMS by police, having been chemically sedated with 10 mg of Haldol 2 mg of Ativan at [facility] due to aggressive behavior. Apparently she was walking in the middle of the road acting aggressively towards police which patient was admitted to inpatient psychiatry unit for further evaluation and management. Patient was continued on Haldol and carbamazepine, which she tolerated well with minimal side effects. Patient was admitted to a locked, inpatient psychiatric unit. Appropriate precautions were in place throughout patient's hospital stay. Patient was seen and examined on the unit by psychiatry. Psychotropic medications were adjusted. There was no evidence of any suicidality or homicidality on the inpatient unit. Patient's mood improved with the benefit of psychopharmacologic treatment and had further behavioral disturbance since admission. Patient was noted to have been initially irritable with labile mood but with treatment was able to reach stable mood and noted to participate and engage in treatment with staff adequately. Patient noted to be future oriented with plans to continue treatment and return home with power of deputy county attorney whom had no safety concerns with patient discharged back home. Counselor has arranged discharge plan. On the day of discharge: Patient seen and examined; chart reviewed. Case discussed with nurse and counselor. No behavioral issues overnight. On my examination today, the patient denies any suicidal or homicidal ideation, intent or plan on direct questioning and contracts for safety. He denies any audiovisual hallucinations. No delusional material verbalized today. Denies any side effects from medications and has an understanding of medication regimen and indication. No physical complaints. Suicide and violence risk assessment on day of discharge both suggest lower imminent risk, and the patient's level of function is adequate for planned level of outpatient care. Patient has maximized benefit from this inpatient psychiatric hospital stay and will be discharged with discharge plan as arranged by counselor. Patient advised to return to psychiatric emergency room for any concerning psychiatric symptoms. Patient and power of deputy county attorney agrees with plan. - Discharge Discharge Date: 12/26/17 - Discharge Diagnosis (1) Unspecified psychosis Code(s): F29 - Unspecified psychosis not due to a substance or known physiological condition Status: Acute Discharge Disposition: Home - Discharge Instructions Discharge Diet: Heart Healthy Diet Activities You Can Perform: Weight Bearing As Tolerat - Discharge Time > 30 minutes Mental Status Examination Appearance: Appropriate Consciousness: Alert Orientation: x4 Motor Activity: Normal gait Speech: Unremarkable Language: Adequate Fund of Knowledge: Adequate Attention and Concentration: Adequate Memory: Unremarkable Mood: Appropriate Affect: Appropriate Thought Process & Associations: Intact, Goal directed, Linear Thought Content: Appropriate Hallucination Type: None Delusion Type: None Suicidal Ideation: No Suicidal Plan: No Suicidal Intention: No Homicidal Ideation: No Homicidal Plan: No Homicidal Intention: No Insight: Fair Judgment: Impulsive Discharge/Advance Care Plan - Results Vital Signs: Last Vital Signs Temp 97.7 F 12/26/17 04:51 Pulse 95 H 12/26/17 04:51 Resp 16 12/26/17 04:51 BP 115/55 L 12/26/17 04:51 Pulse Ox 97 12/26/17 04:51 Lab Results: Laboratory Results Hemoglobin A1c 6.2 % (4.3-6.0) H 12/20/17 07:41 Triglycerides 40 mg/dL (42-150) L 12/20/17 07:41 Cholesterol 141 mg/dL (120-200) 12/20/17 07:41 LDL Cholesterol, Calc 69 mg/dL (0-99) 12/20/17 07:41 HDL Cholesterol 63.6 mg/dL (40.0-60.0) H 12/20/17 07:41 Summary of Procedures: none Pending Results: None - Medications Number of antipsychotic medications at discharge: 1 - Discharge Care Plan Goals to Promote Your Health: * To prevent worsening of your condition and complications * To maintain your health at the optimal level Directions to Meet Your Goals: Take your medications as prescribed Follow your dietary instruction Follow activity as directed Keep your appointments as scheduled Take your immunizations and boosters as scheduled If your symptoms worsen call your PCP, if no PCP go to Urgent Care Center or Emergency Room For 15/10 questions related to your inpatient stay or results of tests pending at discharge, please contact Dr. River Mclean MD at Smoking is Dangerous to Your Health. Avoid second hand smoking
== END 2017-12-26 18:50 | disposition home or self-care (01) ==
LOC: H270 16:00
PROVIDERS: ADMIT Student in an Organized Health Care Education/Training Program; ATTEND Student in an Organized Health Care Education/Training Program
CPT/HCPCS: 80048; 80053; 80061; 82550; 82552; 83036; 85025